=== PATIENT | male | born 1950 | race Hispanic/Latino ===

== ENCOUNTER 2021-08-20 12:41 | Emergency (ER) | payer OTHER, MEDICARE ==
[~2021-08-20] VITALS: Ht 170.2 cm; Wt 68.0 kg
[2021-08-20 14:04] LABS: APPEARANCE,URINE CLOUDY (CLEAR); BILIRUBIN,URINE SMALL (NEGATIVE); COLOR,URINE YELLOW (YELLOW); GLUCOSE, URINE (UA) NEGATIVE (NEGATIVE); KETONES,URINE 40 mg/dL (NEGATIVE); LEUKOCYTE ESTERASE ,URINE MODERATE (NEGATIVE); NITRATE,URINE POSITIVE (NEGATIVE); OCCULT BLOOD,URINE LARGE (NEGATIVE); PROTEIN,URINE 100 mg/dL (NEGATIVE)
[2021-08-20 14:07] LABS: BACTERIA,URINE Rare /HPF (None Seen); RBC,URINE 0-1 /HPF (0-1); WBC,URINE >100 /HPF (0-1)
[2021-08-20 14:08] LABS: SQUAMOUS EPITHELIAL CELL,UR Rare /HPF (0-2)
[2021-08-20 14:09] LABS: SPERM,URINE Few /HPF (None Seen)
[2021-08-20 14:58] LABS: BASOPHILS % (AUTO) 0.3 % (0.0-5.0); EOSINOPHILS % (AUTO) 0.1 % (0.0-8.0); HEMATOCRIT 41.3 % (42-54); MEAN CORPUSCULAR HEMOGLOBIN 29.3 pg (27.0-33.0); MEAN CORPUSCULAR HGB CONC 34.4 g/dL (32.0-36.0); MEAN CORPUSCULAR VOLUME 85.3 fL (79-99); MONOCYTES % (AUTO) 6.3 % (3.0-13.0); NEUTROPHILS % (AUTO) 84.4 % (40.0-77.0); PLATELET COUNT (AUTO) 107 K/uL (130-400); RED BLOOD CELL COUNT(AUTO) 4.84 MIL/uL (4.50-6.20); RED CELL DISTRIBUTION WIDTH 14.4 % (11.0-15.5); WHITE BLOOD COUNT (AUTO) 16.9 K/uL (4.8-10.8)
[2021-08-20 15:12] LABS: CREATININE 1.1 mg/dL (0.5-1.5); POTASSIUM 4.2 mmol/L (3.5-5.1)
[2021-08-20 15:17] LABS: ALBUMIN 3.6 g/dL (3.5-5.0); BILIRUBIN,TOTAL 1.4 mg/dL (0.2-1.0); TOTAL PROTEIN, SERUM 7.7 g/dL (6.0-8.3)
[2021-08-20] MEDS ORDERED: KETOROLAC 15MG/ML VIAL (15MG/ML) IV ONE (15:30)
[2021-08-20] MEDS ORDERED: ACETAMINOPHEN 500 MG TABLET PO ONE (15:30)
[2021-08-20] MEDS ORDERED: CEFTRIAXONE 1G VIAL 1 GM in 0.9%NACL 50ML 50 ML IV ONE (15:30)
[2021-08-20] MEDS ORDERED: KETOROLAC 30MG VIAL (30MG/ML) IVP ONE (15:30)
[2021-08-20] MEDS ORDERED: CEFTRIAXONE 1G VIAL IVP ONE (16:00)
[2021-08-20 16:40] VITALS: BP 136/86
[2021-08-20] MEDS ORDERED: CEPH500B PO (17:08)
[2021-08-20] MEDS ORDERED: ACET1TAB25 PO (17:08)
[2021-08-20] MEDS ORDERED: NAPR-1180 PO (17:08)
== END 2021-08-20 17:32 | disposition home or self-care (01) ==
LOC: EDH 12:41
DX: N45.1 Epididymitis (principal); N43.3 Hydrocele, unspecified; N50.812 Left testicular pain; I10 Essential (primary) hypertension; E78.00 Pure hypercholesterolemia, unspecified; Z79.899 Other long term (current) drug therapy
CPT/HCPCS: 36415; 76870; 80053; 81001; 85025; 87077; 87088; 87186; 96374; 96375; 99284; J0696; J1885

== ENCOUNTER 2021-11-08 07:16 | Day surgery (SDC) | payer OTHER, MEDICARE ==
[2021-11-02 13:34] LABS: EOSINOPHILS % (AUTO) 2.2 % (0.0-8.0); MEAN CORPUSCULAR HEMOGLOBIN 28.7 pg (27.0-33.0); MEAN CORPUSCULAR HGB CONC 33.3 g/dL (32.0-36.0); MEAN CORPUSCULAR VOLUME 86.1 fL (79-99); MONOCYTES % (AUTO) 9.6 % (3.0-13.0); NEUTROPHILS % (AUTO) 50.8 % (40.0-77.0); PLATELET COUNT (AUTO) 119 K/uL (130-400); RED BLOOD CELL COUNT(AUTO) 4.88 MIL/uL (4.50-6.20); RED CELL DISTRIBUTION WIDTH 13.8 % (11.0-15.5); WHITE BLOOD COUNT (AUTO) 4.9 K/uL (4.8-10.8)
[2021-11-02 13:35] LABS: APPEARANCE,URINE Clear (CLEAR); BILIRUBIN,URINE Negative (NEGATIVE); COLOR,URINE Yellow (YELLOW); GLUCOSE, URINE (UA) Negative (NEGATIVE); KETONES,URINE Negative (NEGATIVE); LEUKOCYTE ESTERASE ,URINE Moderate (NEGATIVE); NITRATE,URINE Negative (NEGATIVE); OCCULT BLOOD,URINE Large (NEGATIVE); PH,URINE 7.5 (5.0-8.0); PROTEIN,URINE Negative (NEGATIVE); UROBILINOGEN,URINE 0.2 mg/dL (0.2-1.0)
[2021-11-02 13:36] LABS: CREATININE 0.9 mg/dL (0.5-1.5); POTASSIUM 4.3 mmol/L (3.5-5.1)
[2021-11-02 13:42] LABS: PROTHROMBIN TIME 10.9 SEC (9.6-11.6)
[2021-11-02 13:43] LABS: PARTIAL THROMBOPLASTIN TIME 27.2 SEC (26.3-35.5)
[2021-11-02 13:47] LABS: BACTERIA,URINE Rare /HPF (None Seen); RBC,URINE 0-1 /HPF (0-1); SQUAMOUS EPITHELIAL CELL,UR Rare /HPF (0-2); WBC,URINE 0-1 /HPF (0-1)
[2021-11-07 12:43] VITALS: BP 157/91
[2021-11-08] VITALS (18 sets, daily range): BP systolic 111–161; BP diastolic 73–99
[~2021-11-08] VITALS: Ht 165.1 cm; Wt 68.9 kg
[~2021-11-08 07:16] MED LIST: AEC81 PO; ATOR10 PO; CYAN1TAB44 PO; FOLI0.8T3 PO; GENTAMICIN 80 MG/NS 100 ML PB 100 ML IV SCH; LACTATED RINGERS 1000ML 1,000 ML IV ONE; LEVO500T90 PO; LEVO75CA5 PO; LISI5TAB21 PO; OMEP20CA12 PO; TAMS-1 PO
[2021-11-08] MEDS ORDERED: GENTAMICIN 80 MG/NS 100 ML PB 100 ML IV SCH (08:30)
[2021-11-08] MEDS ORDERED: PROPOFOL 10 MG/ML 20ML VIAL IV ONE (08:32)
[2021-11-08] MEDS ORDERED: FENTANYL CITRATE PF 50 MCG/1 ML 2ML VIAL ONE ×2 (08:32→11:22)
[2021-11-08] MEDS ORDERED: LIDOCAINE PF 100MG/5ML (2%) SYRINGE 5ML ONE (08:32)
[2021-11-08] MEDS ORDERED: MEROPENEM 1 GM VIAL IVP SCH (08:50)
[2021-11-08] MEDS ORDERED: GLYCOPYRROLATE 1 MG/5 ML SYRINGE ONE (09:07)
[2021-11-08] MEDS ORDERED: PHENYLEPHRINE HCL 10 MG/ML 1ML VIAL IV ONE (09:20)
[2021-11-08] MEDS ORDERED: ESMOLOL HCL 10 MG/ML 10 ML VIAL ONE (09:23)
[2021-11-08] MEDS ORDERED: EPHEDRINE SULFATE 50 MG/ML AMPULE ONE (09:57)
[2021-11-08] MEDS ORDERED: ONDANSETRON 4MG INJ ONE (11:21)
[2021-11-08] MEDS ORDERED: ACETAMINOPHEN 500 MG TABLET ONE (13:16)
== END 2021-11-08 13:52 | disposition home or self-care (01) ==
LOC: DAH 07:16
PROVIDERS: ATTEND Urology
DX: N40.1 Benign prostatic hyperplasia with lower urinary tract symptoms (principal); R33.8 Other retention of urine; N21.0 Calculus in bladder; N45.1 Epididymitis; I10 Essential (primary) hypertension; E78.00 Pure hypercholesterolemia, unspecified; Z79.899 Other long term (current) drug therapy; Z98.890 Other specified postprocedural states; Z79.01 Long term (current) use of anticoagulants
CPT/HCPCS: 36415 ×2; 52318; 52648; 71045; 80048; 81001; 82360; 85025; 85610; 85730; 87088; 87635; 93005; A4215; A4221; A4222; A4223; A4354; A4358; A4600; A4663; A4930; A6260; C1758; C9803; J2001; J2185; J2370; J2405; J2704; J3010 ×2; J3490 ×3; J7030; J7040; J7120; J1580

== ENCOUNTER 2022-04-07 20:20 | Emergency (ER) | payer OTHER, MEDICARE ==
[~2022-04-07] VITALS: Ht 167.6 cm; Wt 68.0 kg
[~2022-04-07 20:20] MED LIST changes: -GENTAMICIN 80 MG/NS 100 ML PB 100 ML IV SCH; -LACTATED RINGERS 1000ML 1,000 ML IV ONE; +LEVO-70 PO; -LEVO500T90 PO
[2022-04-07 20:43] LABS: BASOPHILS % (AUTO) 0.6 % (0.0-5.0); HEMATOCRIT 42.9 % (42-54); LYMPHOCYTES % (AUTO) 18.2 % (21.0-51.0); MEAN CORPUSCULAR HEMOGLOBIN 28.8 pg (27.0-33.0); MEAN CORPUSCULAR HGB CONC 34.3 g/dL (32.0-36.0); MEAN CORPUSCULAR VOLUME 84.1 fL (79-99); MONOCYTES % (AUTO) 17.5 % (3.0-13.0); NEUTROPHILS % (AUTO) 63.1 % (40.0-77.0); PLATELET COUNT (AUTO) 54 K/uL (130-400); RED CELL DISTRIBUTION WIDTH 14.8 % (11.0-15.5); WHITE BLOOD COUNT (AUTO) 5.4 K/uL (4.8-10.8)
[2022-04-07 20:50] LABS: CREATININE 1.3 mg/dL (0.5-1.5); POTASSIUM 3.8 mmol/L (3.5-5.1)
[2022-04-07 20:54] LABS: TOTAL PROTEIN, SERUM 7.5 g/dL (6.0-8.3)
[2022-04-07 21:16] LABS: APPEARANCE,URINE CLEAR (CLEAR); BILIRUBIN,URINE NEGATIVE (NEGATIVE); COLOR,URINE YELLOW (YELLOW); GLUCOSE, URINE (UA) NEGATIVE (NEGATIVE); KETONES,URINE NEGATIVE (NEGATIVE); LEUKOCYTE ESTERASE ,URINE TRACE (NEGATIVE); NITRATE,URINE NEGATIVE (NEGATIVE); OCCULT BLOOD,URINE SMALL (NEGATIVE); PROTEIN,URINE NEGATIVE (NEGATIVE); UROBILINOGEN,URINE 0.2 mg/dL (0.2-1.0)
[2022-04-07 21:33] LABS: BACTERIA,URINE Rare /HPF (None Seen); MUCUS,URINE Few LPF (None Seen); SQUAMOUS EPITHELIAL CELL,UR Few /HPF (0-2)
[2022-04-07 22:16] VITALS: BP 131/74
== END 2022-04-07 22:30 | disposition home or self-care (01) ==
LOC: EDH 20:20
DX: U07.1 COVID-19 (principal); R55 Syncope and collapse; E03.9 Hypothyroidism, unspecified; E78.00 Pure hypercholesterolemia, unspecified; I10 Essential (primary) hypertension; K21.9 Gastro-esophageal reflux disease without esophagitis; Z79.82 Long term (current) use of aspirin; Z79.899 Other long term (current) drug therapy
CPT/HCPCS: 99285; 70450; 71045; 87635; 84484; 80053; 85025; 87804 ×2; 81001; 36415; 93005; C9803

== ENCOUNTER → 2023-10-30 | Outpatient (CLI) | payer OTHER, MEDICARE ==
[~2023-10-30] MED LIST changes: +IOHEXOL 350 MG/ML 100ML INFUS..BTL IV ONE
== END | disposition home or self-care (01) ==
LOC: RAH 08:20
PROVIDERS: ATTEND Family Medicine
DX: N40.0 Benign prostatic hyperplasia without lower urinary tract symptoms (principal); R31.0 Gross hematuria
CPT/HCPCS: 74178; Q9967

== ENCOUNTER 2024-07-19 14:32 | Emergency (ER) | payer OTHER, MEDICARE ==
[~2024-07-19] VITALS: Ht 165.1 cm; Wt 68.9 kg
[~2024-07-19 14:32] MED LIST changes: -IOHEXOL 350 MG/ML 100ML INFUS..BTL IV ONE
--- NOTE | 2024-07-19 14:56 | ERN ---
ED Note History of Present Illness Stated Complaint: HEAD/EAR PRESSURE, COUGH, CONGESTION Chief Complaint: Headache Time Seen by MD: 14:38 Dictation: PATIENT IS A 74-YEAR-OLD MALE COMING IN TODAY WITH MILD COUGH AND EAR CONGESTION WITH DECREASED HEARING, STATES IT FEELS LIKE A HEARING THREW WATER. STATES HE HAS HAD IT FOR TWO WEEKS NO CHEST PAIN NO BACK PAIN NO SOB NO FEVER NO CHILLS. PATIENT IS CURRENTLY ON [id number] FOR TONSILLITIS THAT WAS PRESCRIBED ON THE July. Allergies: Coded Allergies: No Known Drug Allergies (Unverified Allergy, Unknown, 08/20/21) Home Meds Reported Medications Atorvastatin Calcium (LIPITOR) 20 Mg Tab, 20 MG PO DAILY, TAB 11/07/21 Lisinopril (Lisinopril) 5 Mg Tablet, 5 MG PO DAILY, TAB 11/07/21 Levofloxacin (Levofloxacin) 500 Mg Tablet, 500 MG PO DAILY, TAB 11/07/21 Omeprazole (Omeprazole) 20 Mg Capsule.dr, 20 MG PO DAILY, CAP 11/07/21 Folic Acid (Folic Acid) 0.8 Mg Tablet, 0.8 MG PO DAILY, TAB 11/07/21 Levothyroxine Sodium (Levothyroxine) 75 Mcg Capsule, 75 MCG PO DAILY, CAP 11/07/21 Aspirin (ASPIRIN 81 MG ECTAB) 81 Mg Ectab, 81 MG PO DAILY, TAB.EC 11/07/21 Tamsulosin HCl (Flomax) 0.4 Mg Cap.er.24h, 0.4 MG PO DAILY, CAPSULE.DR 11/07/21 Cyanocobalamin/Folic Acid (Vitamin F20-Xvmuo Acid Tablet) 1 Each Tablet, 1 EACH PO DAILY, TAB 11/07/21 Past Medical History Past Medical History: GERD, High Cholesterol, Hypertension, Hypothyroid, Prostatitis Additional Past Medical Hx: THYROID Surgical History: Other Surgical History Other: PROSTATE Family History: Negative Social History: Negative, Lives with family RN Note Reviewed/Agreed w/PFSH: Yes Review of System Dictation CONSTITUTIONAL: NEGATIVE EXCEPT FOR HPI HEAD/FACE: NEGATIVE EXCEPT FOR HPI EENT: NEGATIVE EXCEPT FOR HPI BILATERAL EAR PAIN/PRESSURE RESPIRATORY: NEGATIVE EXCEPT FOR HPI COUGH GASTROINTESTINAL/ABDOMINAL: NEGATIVE EXCEPT FOR HPI GENITOURINARY: NEGATIVE EXCEPT FOR HPI MUSCULOSKELETAL: NEGATIVE EXCEPT FOR HPI INTEGUMENTARY: NEGATIVE EXCEPT FOR HPI NEUROLOGICAL/PSYCH: NEGATIVE EXCEPT FOR HPI HEMATOLOGIC/LYMPHATIC: NEGATIVE EXCEPT FOR HPI ALL SYSTEMS NEGATIVE, EXCEPT NOTED ABOVE. 13 POINT REVIEW OF SYSTEMS ASSESSED AND ALL NEGATIVE EXCEPT FOR ABOVE. Initial Vital Sign VS Vital Signs Date Time Temp Pulse Resp B/P (MAP) Pulse Ox O2 Delivery O2 Flow Rate FiO2 07/19/24 14:34 99.0 93 16 135/91 96 Room Air 0 07/19/24 16:50 21 Physical Exam Dictation VITAL SIGNS REVIEWED GENERAL APPEARANCE: ALERT, ORIENTED X 3, NO ACUTE DISTRESS, WELL DEVELOPED, NOURISHED. HEAD AND FACE: NON-TRAUMATIC. EYES: PERRL, PINK CONJUNCTIVAS, EYELID NO TRAUMA, ANTERIOR CHAMBER WITH ARCUS SENILIS. EARS: PINNAS INTACT AND NO SIGNS OF TRAUMA BILATERAL OTITIS MEDIA WITH EFFUSION, OTIC CANALS ARE INTACT. NOSE: NO DISCHARGE, NO BLEEDING. OROPHARYNX: MOUTH NORMAL, TONGUE PINK, PHARYNX CLEAR,NO ERYTHEMA, TONSILS NO EXUDATES, NO ABSCESSES NOTED, MUCOUS MEMBRANE MOIST NECK: SUPPLE, NON-TENDER, NO THYROMEGALY, NO MASSES, NO JVD, NO BRUITS BREAST:DEFERRED CHEST:NO TENDERNESS, NO CREPITUS, NO PARADOXICAL MOVEMENT, NO RETRACTIONS LUNGS:CLEAR, WELL-VENTILATED, SYMMETRIC, NO RALES, NO WHEEZING, NO RHONCHI, NO STRIDOR, GOOD BREATH SOUNDS BILATERALLY HEART: REGULAR RATE, REGULAR RHYTHM, NO MURMUR, NO GALLOPS VASCULAR: NO PERIPHERAL EDEMA, ABDOMEN: SOFT, POSITIVE BOWEL SOUNDS, NONDISTENDED, NO GUARDING, NONTENDER, NO REBOUND, NO MASSES NO HEPATOMEGALY, NO SPLENOMEGALY, NO FLYNN'S SIGN, NO HERNIAS. RECTAL: DEFERRED GENITAL: DEFERRED NEUROLOGICAL: NORMAL SPEECH, MOTOR FUNCTION INTACT, SENSORY FUNCTION INTACT MUSCULOSKELETAL: NECK NONTENDER, FULL RANGE OF MOTION, BACK NONTENDER, FULL RANGE OF MOTION, EXTREMITIES: NONTENDER, FULL RANGE OF MOTION SKIN: COLOR PINK, DRY, NO TURGOR, NO RASH, NO LACERATIONS, NO ABRASIONS, NO CONTUSIONS. LYMPHATIC: DEFERRED Results (Laboratory/Radiology) Labs Reviewed?: Yes ED Course ED Course Vital Signs Date Time Temp Pulse Resp B/P (MAP) Pulse Ox O2 Delivery O2 Flow Rate FiO2 07/19/24 16:50 99.0 90 16 131/89 97 Room Air* 0 21 07/19/24 14:34 99.0 93 16 135/91 96 Room Air 0 SIXTEEN 20, PATIENT LEFT WITHOUT PROPER DISCHARGE. PATIENT WAS GIVEN INFORMATION ON INSUFFLATION WITH AFRIN NOSE SPRAY AND HOLDING NOSE. Medical Decision Making MDM MEDICAL DISCHARGE MAKING BASED ON CHEST X-RAY AND BASIC LABS FOR COUGH AND BILATERAL EAR PAIN WITH DECREASED HEARING. CHEST X-RAY NEGATIVE, PATIENT HAS TESSALON PERLES FOR COUGH. PATIENT AND DAUGHTER HAS BEEN GIVEN INFORMATION ON INSUFFLATION AFTER USING AFRIN NASAL SPRAY [id number]. DX & DISP Disposition: Discharge Departure Impression: Primary Impression: Bilateral otitis media with effusion Additional Impression: Cough Condition: Stable Additional Instructions: FOLLOW-UP WITH PRIMARY CARE PROVIDER IN 1 TO 2 DAYS. TAKE MEDICATIONS DIRECTED HERE IN THE EMERGENCY ROOM. OKAY TO CONTINUE HOME MEDICATIONS UNLESS OTHERWISE DISCUSSED DURING YOUR VISIT IN THE EMERGENCY ROOM TODAY. RETURN TO YOUR NEAREST EMERGENCY ROOM IF SYMPTOMS WORSEN OR IF THERE IS NO IMPROVEMENT. CALL 911 IF YOU NEED IMMEDIATE ASSISTANCE. TAKE TYLENOL OR MOTRIN [id number] NEEDED AND IF NO CONTRAINDICATIONS ARE PRESENT. INCREASE ORAL HYDRATION. A WOUND CULTURE OR URINE CULTURE WAS ORDERED HERE IN THE EM ERGENCY ROOM DEPARTMENT PLEASE FOLLOW-UP WITH PRIMARY CARE PROVIDER AND ADVISE THEM TO GET REPEAT PORTS FROM OUR FACILITY. IF YOU HAD ANY NOEMY WRAP/SPLINTS THAT WERE APPLIED HERE, PLEASE DO NOT REMOVE THEM UNTIL YOU SEE YOUR PRIMARY CARE OR SPECIALTY. AFRIN NASAL SPRAY THREE SPRAYS EACH SIDE OF NOSE TWICE A DAY FOR THREE DAYS. INSUFFLATING DIRECTED AND INSTRUCTED IN TRIAGE. CONTINUE TESSALON PERLES FOR COUGH AND SEE YOUR PRIMARY CARE DOCTOR FOR FOLLOW UP. Referrals: KELI RUTLEDGE MD (PCP) Time of Disposition: 16:23 I have reviewed the case, and I agree with, Diagnosis and Plan I performed this substantive portion of this visit. I have reviewed and personally made and approve the management plan that is documented in the note by myself or the ANN. I acknowledge full responsibility for the patient's management plan. BINU BELL NP Jul 19, 2024 14:56 DILLON HILL MD Jul 19, 2024 18:46
[2024-07-19 16:50] VITALS: BP 131/89; PULSE 90; RESP 16; TEMP 98.9; O2SAT 97
== END 2024-07-19 16:56 | disposition left against medical advice (07) ==
LOC: EDH 14:32
DX: H65.93 Unspecified nonsuppurative otitis media, bilateral (principal); R05.9 Cough, unspecified; E03.9 Hypothyroidism, unspecified; E78.00 Pure hypercholesterolemia, unspecified; I10 Essential (primary) hypertension; K21.9 Gastro-esophageal reflux disease without esophagitis; Z79.82 Long term (current) use of aspirin; Z79.890 Hormone replacement therapy; Z79.899 Other long term (current) drug therapy
CPT/HCPCS: 99282